=== PATIENT | male | born 1965 | race Hispanic/Latino ===

== ENCOUNTER 2019-04-03 21:05 | Emergency (ER) | payer SELFPAY ==
--- NOTE | 2019-04-03 21:52 | RAD ---
Radiograph left forearm 2 views: DATE: Power scribe today HISTORY: 53-year-old male status post laceration injury to forearm. FINDINGS: No radiopaque foreign body. No fracture or any other osseous abnormality involving radius or ulna. Young perficial linear lucency at volar, ulnar side of distal forearm/wrist. IMPRESSION: 1. Distal forearm/wrist soft tissue laceration. 2. No fracture.
[2019-04-03] MEDS ORDERED: Lidocaine 1% w/Epinephrine 1:100K 20 ML VIAL ONE (22:03)
[2019-04-03] MEDS ORDERED: Triple Antibiotic Oint 1 GM Packet ONE (22:26)
== END 2019-04-03 22:40 | disposition home or self-care (01) ==
LOC: ERS 21:05
DX: S51.812A Laceration without foreign body of left forearm, initial encounter (principal); E11.9 Type 2 diabetes mellitus without complications; W26.0XXA Contact with knife, initial encounter
CPT/HCPCS: 12002; J2001

== ENCOUNTER 2019-04-18 16:08 | Emergency (ER) | payer SELFPAY ==
[2019-04-18] MEDS ORDERED: Triple Antibiotic Oint 1 GM Packet ONE (16:26)
== END 2019-04-18 16:42 | disposition home or self-care (01) ==
LOC: ERS 16:08
DX: S51.812D Laceration without foreign body of left forearm, subsequent encounter (principal); E11.9 Type 2 diabetes mellitus without complications; F17.200 Nicotine dependence, unspecified, uncomplicated; W26.0XXD Contact with knife, subsequent encounter

== ENCOUNTER 2019-06-22 14:19 | Emergency (ER) | payer SELFPAY ==
[2019-06-22] MEDS ORDERED: Lidocaine 1% (PF) 30 ML VIAL ONE ×2 (15:09→15:18)
[2019-06-22] MEDS ORDERED: Ibuprofen 800 MG TAB ONE (15:18)
== END 2019-06-22 15:53 | disposition home or self-care (01) ==
LOC: ERS 14:19
DX: L02.31 Cutaneous abscess of buttock (principal); E11.9 Type 2 diabetes mellitus without complications
CPT/HCPCS: 10060; J2001

== ENCOUNTER 2021-01-31 08:29 | Emergency (ER) | payer OTHER, SELFPAY | END 2021-01-31 09:46 | disposition home or self-care (01) | LOC: ERS 08:29 | DX: M54.6 Pain in thoracic spine (principal); M54.2 Cervicalgia; E11.9 Type 2 diabetes mellitus without complications; V43.52XA Car driver injured in collision with other type car in traffic accident, initial encounter; Y92.410 Unspecified street and highway as the place of occurrence of the external cause | CPT/HCPCS: 99283 ==